=== PATIENT | male | born 1930 | race Caucasian/White ===

== ENCOUNTER 2017-02-09 07:23 | Day surgery (SDC) | payer MEDICARE, BC ==
[~2017-02-09] VITALS: Ht 175.3 cm; Wt 59.1 kg
[2017-02-09 07:58] VITALS: BP 184/95; PULSE 91; RESP 20; TEMP 97.9; O2SAT 99
[2017-02-09] MEDS ORDERED: LEVOFLOXACIN 500 MG PREMIX 100 ML - nephrostomy tube insertion or exchange IV SCH (08:30)
[2017-02-09 08:37] LABS: AUTOMATED NEUTROPHIL # 5.9 TH/MM3 (1.8-7.7); BASOPHIL % 0.2 % (0.0-2.0); EOSINOPHIL # 0.1 TH/MM3 (0-0.4); EOSINOPHIL % 0.7 % (0.0-4.0); HEMO FLAGS DIFF FINAL; LYMPH % 20.3 % (9.0-44.0); LYMPHOCYTE # 1.7 TH/MM3 (1.0-4.8); MEAN CELL VOLUME 80.3 FL (80.0-100.0); MEAN CORPUSCULAR HEMOGLOBIN 26.9 PG (27.0-34.0); MEAN CORPUSCULAR HGB CONC 33.5 % (32.0-36.0); MONO % 7.7 % (0.0-8.0); NEUT % 71.1 % (16.0-70.0); PLATELET COUNT 195 TH/MM3 (150-450); RED BLOOD COUNT 4.85 MIL/MM3 (4.50-5.90); RED CELL DISTRIBUTION WIDTH 16.4 % (11.6-17.2); WHITE BLOOD COUNT 8.3 TH/MM3 (4.0-11.0)
[2017-02-09] MEDS ORDERED: PLAV75TA29 PO (08:41)
[2017-02-09] MEDS ORDERED: COUM6TAB PO (08:41)
[2017-02-09] MEDS ORDERED: CARV12.5 PO (08:41)
[2017-02-09] MEDS ORDERED: COUM3TAB PO (08:41)
[2017-02-09 08:45] LABS: APTT (PATIENT) 25.9 SEC (24.3-30.1); INTERNATIONAL NORMALIZED RATIO 1.1 RATIO; PROTHROMBIN TIME - PATIENT 11.8 SEC (9.8-11.6)
[2017-02-09] MEDS ORDERED: fentaNYL CITRATE 250 MCG/5 ML AMP ONE (09:22)
[2017-02-09] MEDS ORDERED: MIDAZOLAM HCL 5 MG/5 ML VIAL ONE (09:22)
--- NOTE | 2017-02-09 10:29 | PD.RAD ---
Post Procedure Progress Note Pre Procedure Diagnosis: (1) Neurogenic bladder Post Procedure Diagnosis: (1) Neurogenic bladder Procedure Date: Feb 09, 2017 Supervising Radiologist: Oswald Teran Proceduralist/Assist: Salvador Gee RT(R) Anesthesia: Conscious Sedation Plan of Activity Patient to Unit: ROPU Patient Condition: Good See PACS Report for procedural detail/treatment Oswald Teran MD Feb 09, 2017 10:28
[2017-02-09 10:30] VITALS: BP 125/70; PULSE 79; RESP 16; TEMP 97.6; O2SAT 99
[2017-02-09] MEDS ORDERED: IOHEXOL 350 MG/ML 50 ML BTL (for RAD DIAG) ONE (10:43)
[2017-02-09 10:45] VITALS: BP 120/60; PULSE 73; RESP 16; O2SAT 98
--- NOTE | 2017-02-09 11:12 | RADRPT ---
EXAM DATE/TIME: 02/09/2017 09:42 [facility] COMPARISON: No previous studies available for comparison. INDICATIONS : Patient with history of neurogenic bladder in need of suprapubic catheter placement. MEDICAL HISTORY : 1.ND 2.HTN 3.Neurogenic bladder SURGICAL HISTORY : 1.Cardiac stent placement 2.Inguinal hernia repair 3.TURP ENCOUNTER: Initial ACUITY: 1 month PAIN SCORE: 0/10 FLUORO TIME: 2.1 minutes IMAGE SERIES: 0 SEDATION TIME: 30 minutes CONTRAST: cc Omnipaque 350 (iohexol) MEDICATION(S): 1.) 2 mg midazolam (Versed) IV 2.) 150 mcg fentanyl (Sublimaze) IV DEVICE(S): 1.) Sánchez catheter 16F PROCEDURE : 1. Ultrasound localization of the bladder. 2. Suprapubic catheter placement. 3. Conscious sedation with continuous EKG and oximetry monitoring. The risks, benefits and alternatives to the procedure were explained and verbal and written consent w as obtained. The site was prepped in sterile fashion. Full sterile technique was used, including ca p, mask, sterile gloves and gown and a large sterile sheet. Hand hygiene and 2% chlorhexidine and/or betadine/alcohol prep was utilized per protocol for cutaneous antisepsis. The skin and subcutaneous tissues were infiltrated with local anesthetic solution. Utilizing ultrasound and fluoroscopic guidance the urinary bladder was localized. Just above the pub ic symphysis in the midline a dermatotomy was made and serial dilatation was performed to accept a 14 Hebrew Sánchez catheter. The balloon was inflated and positive contrast was injected to document intr aluminal position. Conscious sedation was performed with the prescribed dosages and duration as above in the presence of an independent trained radiology nurse to assist in the monitoring of the patient. EKG and oximetry remained stable throughout the procedure. The patient tolerated the procedure well and there were n o complications. The patient was sent to post anesthesia recovery in stable condition. CONCLUSION: Uncomplicated suprapubic catheter placement. Oswald Teran MD on February 09, 2017 at 11:09 Board Certified Radiologist. This report was verified electronically.
[2017-02-09 11:15] VITALS: BP 111/62; PULSE 74; RESP 16; O2SAT 97
[2017-02-09 11:45] VITALS: BP 111/62; PULSE 74; RESP 16; O2SAT 97
== END 2017-02-09 13:39 | disposition home or self-care (01) ==
LOC: HROP 07:23 → HRIP 07:26 → HROP 13:39
PROVIDERS: ATTEND Urology
DX: N31.9 Neuromuscular dysfunction of bladder, unspecified (principal); I10 Essential (primary) hypertension; I25.2 Old myocardial infarction; Z01.818 Encounter for other preprocedural examination; N40.1 Benign prostatic hyperplasia with lower urinary tract symptoms; R33.8 Other retention of urine
CPT/HCPCS: 51102; 77002; 85025; 85610; 85730; 99152; 99153; C1769; C1894; J1956; J2250; J3010; Q9967